=== PATIENT | female | born 1995 | race Caucasian/White ===

== ENCOUNTER 2017-10-03 11:30 | Emergency (ER) | payer OTHER ==
[2017-10-03 12:07] VITALS: PULSE 78
--- NOTE | 2017-10-03 14:40 | ED ---
ENT HPI - General Chief complaint: ENT Stated complaint: Swollen Glands-sent by [facility] Time Seen by Provider: 10/03/17 13:30 Source: patient Mode of arrival: ambulatory Limitations: no limitations - History of Present Illness Initial comments: 21-year-old female with recent history of strep throat percent for evaluation of lymphadenopathy. She states that this is been ongoing for the last month and has not improved despite being on amoxicillin. She denies any pain or supportive tonsillitis with her symptoms. She also states that she continues to have enlarged lymph nodes. - Related Data Home Medications Medication Instructions Recorded Confirmed Amoxicillin 500 mg PO Q8H 10/03/17 10/03/17 Previous Rx's Medication Instructions Recorded Azithromycin [Zithromax Z-pack] 0 mg PO DIRECTED #6 tab 10/03/17 Allergies Allergy/AdvReac Type Severity Reaction Status Date / Time No Known Allergies Allergy Verified 10/03/17 13:55 Review of Systems ROS Statement: Those systems with pertinent positive or pertinent negative responses have been documented in the HPI. ROS Other: All systems not noted in ROS Statement are negative. Constitutional: Denies: fever, chills Eyes: Denies: eye pain, eye discharge, vision change ENT: Denies: ear pain, throat pain, hearing loss Respiratory: Denies: cough, dyspnea Cardiovascular: Denies: chest pain, palpitations Gastrointestinal: Denies: abdominal pain, nausea, vomiting Skin: Denies: rash, lesions Hematological/Lymphatic: Reports: swollen glands Past Medical History Past Medical History: No Reported History History of Any Multi-Drug Resistant Organisms: None Reported Past Surgical History: No Surgical Hx Reported Past Anesthesia/Blood Transfusion Reactions: No Reported Reaction Past Psychological History: ADD/ADHD Smoking Status: Never smoker Past Alcohol Use History: None Reported Past Drug Use History: None Reported - Past Family History Father History Unknown: Yes Family Medical History: No Reported History General Exam Limitations: no limitations General appearance: alert, in no apparent distress Head exam: Present: atraumatic, normocephalic, normal inspection Eye exam: Present: normal appearance, PERRL, EOMI. Absent: scleral icterus, conjunctival injection, periorbital swelling ENT exam: Present: normal exam, normal oropharynx, mucous membranes moist, TM's normal bilaterally, normal external ear exam. Absent: mucous membranes dry Neck exam: Present: full ROM, lymphadenopathy. Absent: normal inspection, tenderness, meningismus, thyromegaly Respiratory exam: Present: normal lung sounds bilaterally. Absent: respiratory distress, wheezes, rales, rhonchi, stridor Cardiovascular Exam: Present: regular rate, normal rhythm GI/Abdominal exam: Present: soft. Absent: distended, tenderness, guarding, rebound, rigid Rectal exam: Present: deferred Neurological exam: Present: alert, oriented X3 Psychiatric exam: Present: normal affect, normal mood Skin exam: Present: warm, dry, intact Course Vital Signs 10/03/17 10/03/17 12:05 14:53 Temperature 99.1 F 98.5 F Pulse Rate 78 78 Respiratory 18 17 Rate Blood Pressure 119/90 111/56 O2 Sat by Pulse 100 99 Oximetry Medical Decision Making - Medical Decision Making 21-year-old female presented for evaluation of lymphadenopathy. She was recently diagnosed with strep throat and treated with amoxicillin. She states that her symptoms have improved however she continues to have bilateral lymphadenopathy. On physical examination she does have enlarged lymph nodes on anterior cervical chain however there are not tender to palpation and there are no other enlarged lymph nodes in the posterior cervical chain supraclavicular or axillary. Remainder of her exam is benign. We'll start the patient on azithromycin and advised to follow-up with her primary care physician. Further given return instructions. The patient acknowledged an understanding of all information provided and agreed with this plan of care. Disposition Clinical Impression: Lymphadenitis Disposition: HOME SELF-CARE Condition: Stable Instructions: Lymphadenopathy (ED) Additional Instructions: Please use medication as discussed. Please follow up with family doctor if symptoms have not improved over the next two days. Please return to the emergency room if your symptoms increase or worsen or for any other concerns. Prescriptions: Azithromycin [Zithromax Z-pack] 0 mg PO DIRECTED #6 tab Referrals: Anthony Walker MD [Primary Care Provider] - 1-2 days Time of Disposition: 14:40
[2017-10-03 14:53] VITALS: BP 111/56; RESP 17; TEMP 98.5
== END 2017-10-03 14:53 | disposition home or self-care (01) ==
LOC: EC 11:30
DX: I88.9 Nonspecific lymphadenitis, unspecified (principal); Z87.898 Personal history of other specified conditions
CPT/HCPCS: 99283

== ENCOUNTER → 2017-11-12 | Outpatient (CLI) | payer OTHER ==
--- NOTE | 2017-11-12 16:49 | US ---
EXAMINATION TYPE: US st tissue head/neck DATE OF EXAM: 11/12/2017 COMPARISON: NONE CLINICAL HISTORY: Enlarged Lymph Nodes R59.1. palpable areas bilaterally under mandible, patient was sick 3 months ago and they have been enlarged since Chains of lymph nodes seen bilaterally. Measured largest on each side. Right = 2.9cm, Left = 2.1cm IMPRESSION: There are multiple enlarged submandibular lymph nodes bilaterally. The largest measures 2.9 x 1 cm. N o evidence of an abscess.
== END | disposition home or self-care (01) ==
LOC: RADUSWWP 16:14
PROVIDERS: ATTEND Family Medicine
DX: R59.0 Localized enlarged lymph nodes (principal)
CPT/HCPCS: 76536

== ENCOUNTER → 2019-08-30 | Outpatient (CLI) | payer OTHER ==
--- NOTE | 2019-08-30 10:46 | US ---
EXAMINATION TYPE: US thyroid st tissue head/neck DATE OF EXAM: 08/30/2019 COMPARISON: NONE CLINICAL HISTORY: J02.9,Acute pharyngitis R59.0, R13.13. GLAND SIZE: Right Lobe: 4.4 x 1.3 x 1.3 cm Overall Parenchyma: homogenous Left Lobe: 4.6 x 1.3 x 1.2 cm Overall Parenchyma: homogeneous Isthmus Thickness: 0.2 cm NODULES RIGHT: # of nodules measured on right: 0 LEFT: # of nodules measured on left: 0 ISTHMUS: # of nodules measured in the isthmus: 0 Bilateral neck scanned, right node measuring 2.2 x 1.7 x 0.8cm. Left multiple nodes, largest two measuring 1.3 x 1.3 x 0.8cm and 1.8 x 0.8 x 1.1cm IMPRESSION: Bilateral prominent but nonenlarged lymph nodes in the submandibular region. These are li hosea reactive in the setting of acute pharyngitis. Thyroid gland is unremarkable without focal nodule .
== END | disposition home or self-care (01) ==
LOC: RADUSWWP 09:42
PROVIDERS: ATTEND Family Medicine
DX: R13.13 Dysphagia, pharyngeal phase (principal); J02.9 Acute pharyngitis, unspecified; R59.0 Localized enlarged lymph nodes
CPT/HCPCS: 76536

== ENCOUNTER → 2020-08-14 | Outpatient (CLI) | payer OTHER ==
--- NOTE | 2020-08-14 15:58 | US ---
EXAMINATION TYPE: US pelvic complete DATE OF EXAM: 08/14/2020 COMPARISON: NONE CLINICAL HISTORY: N92.1 BREAKTHROUGH BLEEDING W/ IUD,Z97.5 IUD PLACEMENT. IUD placement 5 years ago TECHNIQUE: Transabdominal (TA) Date of LMP: beginning august EXAM MEASUREMENTS: Uterus: 8.7 x 5.1 x 6.0 cm Endometrial Stripe: 0.4 cm Right Ovary: 4.2 x 1.6 x 1.9 cm Left Ovary: 3.1 x 2.5 x 2.0 cm 1. Uterus: Retroverted fluid within cervical canal 2. Endometrium: IUD visualized within body/fundus 3. Right Ovary: follicles noted 4. Left Ovary: follicles noted 5. Bilateral Adnexa: appears wnl 6. Posterior cul-de-sac: free fluid noted IMPRESSION: Fluid is noted within the endocervical canal. IUD is appropriately position.
== END | disposition home or self-care (01) ==
LOC: RADUSWWP 15:26
PROVIDERS: ATTEND Obstetrics & Gynecology
DX: N92.1 Excessive and frequent menstruation with irregular cycle (principal); Z97.5 Presence of (intrauterine) contraceptive device
CPT/HCPCS: 76856

== ENCOUNTER → 2022-11-29 | Outpatient (CLI) | payer OTHER ==
[2022-11-29 14:52] LABS: HCT 39.8 % (37.2-46.3); HGB 13.5 g/dL (12.0-15.0); MCH 31.8 pg (27.0-32.0); MCHC 33.9 g/dL (32.0-37.0); MCV 93.9 fL (80.0-97.0); Mean Platelet Volume 10.9 fL (9.5-12.2); NRBC Per 100 WBC 0 /100 WBCS (0.0-0.0); Platelet Count 188 X 10*3/uL (140-440); RBC 4.24 X 10*6/uL (4.10-5.20); RDW 11.8 % (11.5-14.5); WBC 2.67 X 10*3/uL (4.50-10.00)
[2022-11-29 15:22] LABS: T4, Free (Free Thyroxine) 0.98 ng/dL (0.800-1.800)
== END | disposition home or self-care (01) ==
LOC: LABWHC1 10:08
PROVIDERS: ATTEND Obstetrics & Gynecology
DX: N93.8 Other specified abnormal uterine and vaginal bleeding (principal)
CPT/HCPCS: 36415; 84439; 84443; 85027

== ENCOUNTER → 2022-11-29 | Outpatient (CLI) | payer OTHER ==
--- NOTE | 2022-11-29 10:28 | US ---
EXAMINATION TYPE: US pelvis complete transvag DATE OF EXAM: 11/29/2022 COMPARISON: us CLINICAL HISTORY: N93.8 DUB, Z97.[address] Pt states recent episode of abnormal vaginal bleedin g TECHNIQUE: Transvaginal (TV) and Transabdominal (TA) . Transabdominal sonographic images of the pel vis were acquired. Transvaginal sonographic images were medically necessary to better assess the fol lowing anatomy: Entire pelvis Date of LMP: 11/01/2022 EXAM MEASUREMENTS: Uterus: 9.0 x 4.5 x 6.5 cm Endometrial Stripe: 0.8 cm Right Ovary: 4.5 x 3.3 x 2.8 cm Left Ovary: 4.0 x 2.7 x 1.8 cm 1. Uterus: Retroverted wnl, IUD in correct position 2. Endometrium: wnl 3. Right Ovary: Cyst= 2.4 x 1.7 x 2.5 cn 4. Left Ovary: wnl 5. Bilateral Adnexa: wnl 6. Posterior cul-de-sac: Small amount of free fluid IMPRESSION: 1. Appropriately placed IUD. 2. Right ovarian cyst.
== END | disposition home or self-care (01) ==
LOC: RADUSWWP 09:34
PROVIDERS: ATTEND Obstetrics & Gynecology
DX: N83.201 Unspecified ovarian cyst, right side (principal); N93.8 Other specified abnormal uterine and vaginal bleeding; Z97.5 Presence of (intrauterine) contraceptive device
CPT/HCPCS: 76830; 76856

== ENCOUNTER 2024-11-06 11:41 | Emergency (ER) | payer OTHER ==
[2024-11-06 11:44] VITALS: RESP 18
--- NOTE | 2024-11-06 11:58 | ED ---
Recheck HPI - General Chief Complaint: Recheck/Abnormal Lab/Rx Stated Complaint: Post-op pain Time Seen by Provider: 11/06/24 11:46 Source: patient, RN notes reviewed Mode of arrival: ambulatory Limitations: no limitations - History of Present Illness Initial Comments: 28-year-old female presents emergency department for suture recheck. Patient states she had a cyst removed out of her scope on . Patient states she felt the stitch may have moved or opened up. Patient denies any drainage no fevers or chills patient offers no complaints. - Related Data Home Medications Medication Instructions Recorded Confirmed Amoxicillin 500 mg PO Q8H 10/03/17 10/03/17 Previous Rx's Medication Instructions Recorded Azithromycin [Zithromax Z-pack (6 0 mg PO DIRECTED #6 tab 10/03/17 tabs)] Allergies Allergy/AdvReac Type Severity Reaction Status Date / Time No Known Allergies Allergy Verified 11/06/24 11:44 Review of Systems ROS Statement: Those systems with pertinent positive or pertinent negative responses have been documented in the HPI. ROS Other: All systems not noted in ROS Statement are negative. Past Medical History Past Medical History: No Reported History History of Any Multi-Drug Resistant Organisms: None Reported Past Surgical History: No Surgical Hx Reported Additional Past Surgical History / Comment(s): Cyst removal Past Anesthesia/Blood Transfusion Reactions: No Reported Reaction Past Psychological History: ADD/ADHD Smoking Status: Never smoker Past Alcohol Use History: None Reported Past Drug Use History: None Reported - Past Family History Father History Unknown: Yes Family Medical History: No Reported History General Exam Limitations: no limitations General appearance: alert, in no apparent distress Head exam: Present: atraumatic, normocephalic. Absent: normal inspection (There is scalp sutures in place there is no erythema no drainage minimal swelling) Eye exam: Present: normal appearance, PERRL, EOMI. Absent: scleral icterus, conjunctival injection, periorbital swelling ENT exam: Present: normal exam, mucous membranes moist Neck exam: Present: normal inspection, full ROM. Absent: tenderness, meningismus, lymphadenopathy Respiratory exam: Present: normal lung sounds bilaterally. Absent: respiratory distress, wheezes, rales, rhonchi, stridor Cardiovascular Exam: Present: regular rate, normal rhythm, normal heart sounds. Absent: systolic murmur, diastolic murmur, rubs, gallop, clicks Course Vital Signs 11/06/24 11/06/24 11:42 12:31 Temperature 98 F 98.2 F Pulse Rate 76 74 Respiratory 18 18 Rate Blood Pressure 146/77 143/72 O2 Sat by Pulse 99 98 Oximetry Medical Decision Making - Medical Decision Making Was pt. sent in by a medical professional or institution (THIAGO Keenan, RECRUITING ADMINISTRATOR, urgent care, hospital, or half-way...) When possible be specific @ -No Did you speak to anyone other than the patient for history (EMS, parent, family, police, friend...)? What history was obtained from this source @ -No Did you review nursing and triage notes (agree or disagree)? Why? @ -I reviewed and agree with nursing and triage notes Were old charts reviewed (outside hosp., previous admission, EMS record, old EKG, old radiological studies, urgent care reports/EKG's, half-way records)? Report findings @ -No old charts were reviewed Differential Diagnosis (chest pain, altered mental status, abdominal pain women, abdominal pain men, vaginal bleeding, weakness, fever, dyspnea, syncope, headache, dizziness, GI bleed, back pain, seizure, CVA, palpatations, mental health, musculoskeletal)? @ -Dehiscence wound, abscess, infected wound EKG interpreted by me (3pts min.). @ -None X-rays interpreted by me (1pt min.). @ -None done CT interpreted by me (1pt min.). @ -None done U/S interpreted by me (1pt. min.). @ -None done What testing was considered but not performed or refused? (CT, X-rays, U/S, labs)? Why? @ -None What meds were considered but not given or refused? Why? @ -None Did you discuss the management of the patient with other professionals (professionals i.e. THIAGO Keenan, RECRUITING ADMINISTRATOR, lab, RT, psych nurse, director of social services, plug and mold finisher, teacher, surface to air weapons officer, community case manager)? Give summary @ -No Was smoking cessation discussed for >3mins.? @ -No Was critical care preformed (if so, how long)? @ -No Were there social determinants of health that impacted care today? How? (Homelessness, low income, unemployed, alcoholism, drug addiction, transportation, low edu. Level, literacy, decrease access to med. care, skilled nursing, rehab)? @ -No Was there de-escalation of care discussed even if they declined (Discuss DNR or withdrawal of care, Hospice)? DNR status @ -No What co-morbidities impacted this encounter? (DM, HTN, Smoking, COPD, CAD, Cancer, CVA, ARF, Chemo, Hep., AIDS, mental health diagnosis, sleep apnea, morbid obesity)? @ -None Was patient admitted / discharged? Hospital course, mention meds given and route, prescriptions, significant lab abnormalities, going to OR and other pertinent info. @ -[Discharge patient sutures in place there is no signs of infection no wound dehiscence. Patient discharged in stable condition. Undiagnosed new problem with uncertain prognosis? @ -No Drug Therapy requiring intensive monitoring for toxicity (Heparin, Nitro, Insulin, Cardizem)? @ -No Were any procedures done? @ -No Diagnosis/symptom? @ -Wound recheck Acute, or Chronic, or Acute on Chronic? @ -Acute Uncomplicated (without systemic symptoms) or Complicated (systemic symptoms)? @ -Uncomplicated Side effects of treatment? @ -No Exacerbation, Progression, or Severe Exacerbation? @ -No Poses a threat to life or bodily function? How? (Chest pain, [place], [place], pneumonia, PE, COPD, DKA, ARF, appy, cholecystitis, CVA, Diverticulitis, Homicidal, Suicidal, threat to staff... and all critical care pts) @ -No Disposition Clinical Impression: Encounter for wound re-check Disposition: HOME SELF-CARE Condition: Stable Instructions (If sedation given, give patient instructions): Care For Your Stitches (ED) Additional Instructions: Please return to the Emergency Department if symptoms worsen or any other concerns. Is patient prescribed a controlled substance at d/c from ED?: No Referrals: Alan Pritchard MD [Primary Care Provider] - 1-2 days Time of Disposition: 11:58
[2024-11-06 12:33] VITALS: BP 143/72; PULSE 74; TEMP 98.2
== END 2024-11-06 12:31 | disposition home or self-care (01) ==
LOC: EC 11:41
DX: Z48.00 Encounter for change or removal of nonsurgical wound dressing (principal)
CPT/HCPCS: 99283